=== PATIENT | male | born 1980 | race Caucasian/White ===

== ENCOUNTER 2018-03-14 22:28 | Emergency (ER) | payer SELFPAY ==
[2018-03-15] MEDS ORDERED: LORAZEPAM 2 MG INJ (00:22)
[2018-03-15] MEDS: LORAZEPAM 2 MG INJ IM (00:25)
== END 2018-03-15 02:36 | disposition home or self-care (01) ==
LOC: E/R 22:28
DX: F11.23 Opioid dependence with withdrawal (principal); F17.210 Nicotine dependence, cigarettes, uncomplicated
CPT/HCPCS: 96372; 99284-25